=== PATIENT | female | born 1975 | race Caucasian/White ===

== ENCOUNTER 2020-04-17 15:59 | Outpatient (REF) | payer OTHER, SELFPAY | END 2020-04-17 16:00 | disposition home or self-care (01) | LOC: HO.LAB 15:59 | PROVIDERS: PCP Internal Medicine; Visit Provider Internal Medicine | DX: Z20.828 Contact with and (suspected) exposure to other viral communicable diseases (principal) | CPT/HCPCS: C9803; U0003 ==

== ENCOUNTER 2024-12-26 02:45 | Emergency (ER) | payer OTHER, SELFPAY ==
--- NOTE | 2024-12-26 | ECG_ITS ---
Test Reason : ABDOMINAL PAIN Blood Pressure : */* mmHG Vent. Rate : 60 BPM Atrial Rate : 60 BPM P-R Int : 122 ms QRS Dur : 76 ms QT Int : 408 ms P-R-T Axes : 49 50 54 degrees QTcB Int : 408 ms Normal sinus rhythm Normal ECG No previous ECGs available Referred By: Generic ED Physician Electronically Signed By: THAO RICHARDSON
--- NOTE | ~2024-12-26 | CT_ITS ---
EXAMINATION: CT ABDOMEN PELVIS WITH IV CONTRAST HISTORY: LUQ pain COMPARISON: There are no prior studies for available comparison. TECHNIQUE: CT scan of the abdomen and pelvis was performed following administration of 85 mL Omnipaque 350 using standard departmental protocol. Coronal and sagittal reformatted images were generated and reviewed. Oral contrast material was not administered at the request of the referring physician. This CT exam was performed with one or more of the following dose reduction techniques: automated exposure control, adjustment of the mA and/or kV according to patient size, use of iterative reconstruction technique. DLP: 604 mGy-cm FINDINGS: LOWER CHEST: The visualized lung bases are clear. There is no pleural effusion. CARDIOVASCULATURE: The heart is normal in size. There is no pericardial effusion. LIVER: The liver is normal in size and contour. No liver mass is identified. The hepatic and portal veins are patent. GALLBLADDER / BILE DUCTS: The gallbladder is unremarkable. There is no intra or extrahepatic biliary ductal dilatation. SPLEEN: The spleen is normal in size. No focal splenic lesion is identified. PANCREAS: The pancreas is unremarkable in appearance. ADRENAL GLANDS: Within normal limits. KIDNEYS/RETROPERITONEUM: There is a punctate nonobstructing calculus in an interpolar calyx of the left kidney. There is no hydronephrosis. No renal masses are identified. LYMPH NODES: No abdominal or pelvic lymphadenopathy. VASCULATURE: The abdominal aorta is normal in caliber. MESENTERY/PERITONEUM: No free fluid. No masses. There is no free intraperitoneal gas. STOMACH: The stomach is collapsed, limiting evaluation. SMALL BOWEL: The small bowel is normal in caliber. COLON: The colon is unremarkable. APPENDIX: Normal. URINARY BLADDER/PELVIC ORGANS: The urinary bladder is unremarkable. The uterus and ovaries are unremarkable. BONES / SOFT TISSUES: No suspicious bony or soft tissue abnormalities. CT/CT abdomen pelvis w IV con IMPRESSION: Punctate nonobstructing left renal calculus. Otherwise unremarkable contrast-enhanced CT of the abdomen and pelvis. Electronically signed by: Sharan Zaldivar MD 12/26/2024 09:42 AM EDT
[2024-12-26 02:49] VITALS: BP 127/74; PULSE 63; RESP 18; TEMP 37.2; O2SAT 99; BMI 27.7
--- OUTSIDE RECORDS SUMMARY | 2024-12-26 03:08 | XMS_ITS | Clinical Summary ---
Author Organization [facility] Address [address] [place] [address] Care Team Providers Care Web Content Executive Name Role Phone Adelia Martel MD Primary Care Provider [phone] Allergies No known active allergies Medications Medication Sig Dispensed Refills Start Date End Date Status ferrous sulfate 325 (65 FE) MG tablet Take 1 tablet (325 mg total) by mouth 2 (two) times a day. 0 Active albuterol 108 (90 Base) MCG/ACT inhaler Inhale 2 puffs into the lungs as needed for wheezing. 0 Active Active Problems Problem Noted Date Diagnosed Date BOBBY (iron deficiency anemia) 08/16/2022 Family History Medical History Relation Name Comments Skin cancer Maternal Grandmother Brain cancer Mother Anemia Neg Hx Relation Name Status Comments Father Maternal Grandmother Mother GB Social History Tobacco Use Types Packs/Day Years Used Date Smoking Tobacco: Never Smokeless Tobacco: Never Tobacco Cessation:Counseling Given: Not Answered Alcohol Use Standard Drinks/Week Comments Yes 0 (1 standard drink = 0.6 oz pur e alcohol) Socially Sex and Gender Information Value Date Recorded Sex Assigned at Female 08/25/2022 10:58 AM EDT Gender Identity Female 09/07/2022 2:44 PM EDT Sexual Orientation Straight 09/07/2022 2: 44 PM EDT Job Start Date Occupation Industry Not on file Not on file Not on file Last Filed Vital Signs Vital Sign Reading Time Taken Comments Blood Pressure 126/76 11/21/2023 9:44 AM EDT Pulse 65 11/21/2023 9:44 AM EDT Temperature 36.5 C (97.7 F) 11/21/2023 9:44 AM EDT Respiratory Rate 18 08/31/2022 1:00 PM EDT Oxygen Saturation 100% 11/21/2023 9:44 AM EDT Inhaled Oxygen Concentration - - Weight 64 kg (141 lb) 11/21/2023 9:44 AM EDT Height 160 cm (5' 3 ) 11/21/2023 9:44 AM EDT Body Mass Index 24.98 11/21/2023 9:44 AM EDT Plan of Treatment Health Maintenance Due Date Last Done Comments Hepatitis B Vaccines (1 of 3 - 3-dose series) 1977 Hepatitis C Screening 1977 COVID-19 Vaccine (#1) 03/11/1978 Depression Screening 1989 BMI Counseling 09/09/1995 Preventative Health Evaluation 09/09/1995 Cervical Cancer Screening (Pap Smear) 1998 DTap / Tdap / Td (2 - Td or Tdap) 07/03/2019 07/02/2009 Colon Cancer Screening (Colonoscopy) 2022 Influenza Vaccine (#1) 2024 3, 04/05/2022, 02/18/2021, Additional history exists Pneumococcal Vaccine Aged Out No long er eligible based on patient's age to complete this topic RSV Ped < 20 months Aged Out No longe r eligible based on patient's age to complete this topic Insurance Payer Benefit Plan / Group Subscriber ID Effective Dates Phone Address [facility] [id number] 2022-[address]art[address] [facility] [address] [place] [address] O Care Teams Web Content Executive Relationship Specialty Start Date End Date Adelia Martel MD PCP - General Internal Medicine 07/20/22
--- OUTSIDE RECORDS SUMMARY | 2024-12-26 03:09 | XMS_ITS | Clinical Summary ---
Author Organization [facility] Address [address] [place] [address] Phone Care Team Providers Care Manager Mechanical Name Role Phone Adelia Martel MD Primary Care Provider [phone] Allergies No known active allergies Medications albuterol HFA (PROAIR HFA ; PROVENTIL HFA ; VENTOLIN HFA) 90 mcg/actuation inhaler Inhale 2 puffs by mouth 1 (one) time each day if needed for wheezing. Active ferrous sulfate 325 mg (65 mg elemental iron) tablet Take 1 tablet (325 mg total) by mouth 2 (two) times a day. Active Active Problems Problem Noted Date Diagnosed Date Iron deficiency anemia 03/23/2005 Encounters Date Type Department Care Team Description 12/05/2024 10:00 AM EDT Consult Orthopedic Surgery - [place] [address] [facility] [address] [place] [id number] Yayo Steiner, DPM Hammer toe of left foot (Primary Dx); Plantar wart of left foot; Acquired hammer toe of right foot; Corns and callosities 11/20/2024 9:15 AM EDT Office Visit [facility] Hematology Oncology [address] [place] [address] Benita Valencia PA Leukopenia, unspecified type (Primary Dx); Iron deficiency anemia due to chronic blood loss; Menorrhagia with regular cycle; Palpitations; Positive ABRIL (antinuclear antibody) from Last 3 Months Surgical History Surgery Date Site/Laterality Comments OTHER SURGICAL HISTORY PROCEDURE:TONSILLECTOMY AND ADENOIDECTOMY OTHER SURGICAL HISTORY PROCEDURE:tonsilectomy;COMMENT:As a child Medical History Medical History Date Comments Asthma DX:Asthma Anemia DX:Anemia Obesity DX:Obesity Papanicolaou smear of cervix with positive high risk human papilloma virus (HPV) test DX:Papanico laou smear of cervix with positive high risk human papilloma virus (HPV) test Peripheral edema DX:Peripheral e yehuda Depression DX:Depression Family History Medical History Relation Name Comments Skin cancer Maternal Grandmother Brain cancer Mother Anemia Neg Hx Relation Name Status Comments Father Maternal Grandmother Mother GB Social History Tobacco Use Types Packs/Day Years Used Date Smoking Tobacco: Never Smokeless Tobacco: Never Tobacco Cessation:Counseling Given: Not Answered Alcohol Use Standard Drinks/Week Comments Yes 0 (1 standard drink = 0.6 oz pur e alcohol) Housing Instability Answer Date Recorde d Are you worried that in the next 2 months you may not have stable housing? No 08/28/2024 Food Access & Nutrition Answer Date Rec orded Do you have access to a vari ety of food including fruits and vegetables? Yes 08/28/2024 Access to Healthcare Answer Date Record ed Within the last 3 months, ho w many times did you visit the emergency department for your medical care? 0 08/28/2024 Health Literacy Answer Date Recorded How often do you need to hav e someone help you when you read instructions, pamphlets, or other written material from your doctor or pharmacy? Never 08/28/2024 Caregiver: How often do you need to have someone help you when you read instructions, pamphlets, or other written material from your doctor or pharmacy? Not on file 08/28/2024 Financial Risk Answer Date Recorded How hard is it for you to pa y for the very basics like food, housing, medical care, and air conditioning / heating? Not very hard 08/28/2024 Transportation Answer Date Recorded Has the lack of transportati on kept you from meetings, work, or from getting things needed for daily living? No Has the lack of transportati on kept you from medical appointments or from getting medications? No 08/28/2024 Social Isolation Answer Date Recorded How often do you feel lonely or isolated from ose around you? Never 08/28/2024 Food Risk Answer Date Recorded Within the past 12 months we worried whether our food would run out before we got money to buy more. Never true 08/28/2024 Within the past 12 months th e food we bought just didn't last and we didn't have money to get more. Never true 08/28/2024 Dependent Care Answer Date Recorded Do you need help finding or paying for care for your loved ones. For example, salesperson children's shoes or elderly care for an older adult? No 08/28/2024 Education Answer Date Recorded Do you think completing more education or training, like finishing a GED, going to college, or learning a trade, would be helpful for you? N/A 08/28/2024 Employment and Income Answer Date Recor ded During the last four weeks, have you been actively looking for work? No 08/28/2024 Living Situation Answer Date Recorded What is your living situation? 0 08/28/2024 Comments Unknown Sex and Gender Information Value Date Recorded Sex Assigned at Not on file Legal Sex Female 10:31 AM EST Gender Identity Not on file Sexual Orientation Not on file Obstetrics History Para Term AB IAB SAB Ectopic Multiple Livin g Live Births 2 2 2 2 Date Outcome GA Total Labor Labor/2nd/3rd Weight Sex Type Anes PTL Shasha A1 A5 Name Clin Term Term Last Filed Vital Signs Vital Sign Reading Time Taken Comments Blood Pressure 126/73 11/20/2024 9:06 AM EDT Pulse 74 11/20/2024 9:06 AM EDT Temperature 36.8 C (98.2 F) 11/20/2024 9:06 AM EDT Respiratory Rate 14 09/04/2024 3:32 PM EDT Oxygen Saturation 100% 11/20/2024 9:06 AM EDT Inhaled Oxygen Concentration - - Weight 71.2 kg (157 lb) 11/20/2024 9:06 AM EDT Height 160 cm (5' 3 ) 09/04/2024 3:32 PM EDT Body Mass Index 27.81 09/04/2024 3:32 PM EDT Plan of Treatment Upcoming Encounters Date Type Department Care Team (Late st Contact Info) Description 11/21/2025 8:30 AM EDT Office Visit [facility] Hematology Oncology [address] [place] [id number] Benita Valencia PA [address] [place] [address] Health Maintenance Due Date Last Done Comments Hepatitis B Vaccines (1 of 3 - 19+ 3-dose series) 1996 Pneumococcal Vaccine: Pediatrics (0 to 5 Years) and At-Risk Patients (6 to 49 Years) (1 of 2 - PCV) 1996 Cholesterol Screening (Lipid Panel) 04/05/2022 Colorectal Cancer Screening: Colonoscopy 04/05/2022 COVID-19 Vaccine ( season) 2024 02/17/2023, 05/17/2021, 11/12/2020, Additional history exists Cervical Cancer Screening: Pap Smear 07/06/2024 07/07/2023, 08/17/2022, 01/25/2018 Influenza Vaccine (#1) 2024 , 04/05/2022, 02/18/2021, Additional history exists Social Influencers of Health Screening 08/28/2025 08/28/2024 Breast Cancer Screening 05/11/2026 05/11/19, 05/03/2023, 11/16/2022, Additional history exists DTaP,Tdap,and Td Vaccines (4 - Td or Tdap) 06/28/2032 06/28/2022, 07/02/2009, 05/15/2002 Depression Screening Completed 08/28/2024 HIV Screening Completed 11/20/2024 Hepatitis C Screening Completed 11/20/2024 HIB Vaccines Aged Out No longer eligi ble based on patient's age to complete this topic HPV Vaccines Aged Out No longer eligi ble based on patient's age to complete this topic Hepatitis A Vaccines Aged Out No long er eligible based on patient's age to complete this topic IPV Vaccines Aged Out No longer eligi ble based on patient's age to complete this topic MMR Vaccines Aged Out No longer eligi ble based on patient's age to complete this topic Meningococcal ACWY Vaccine Aged Out N o longer eligible based on patient's age to complete this topic Meningococcal B Vaccine Aged Out No l onger eligible based on patient's age to complete this topic RSV Immunization Patients Under 20 months Aged Out No longer eligible based on patient's age to complete this topic Varicella Vaccines Aged Out No longer eligible based on patient's age to complete this topic Procedures Procedure Name Priority Date/Time Associated Diagnosis Comments EXTRACTABLE NUCLEAR ANTIBODIES PROFILE Routine 11/23/2024 8:23 AM EDT Leucopenia ANTI-DNA ANTIBODY, DOUBLE-STRANDED Routine 11/23/2024 8:23 AM EDT Leukopenia, unspecified type Positive ABRIL (antinuclear antibody) CBC WITH AUTO DIFFERENTIAL Routine 11/20/2024 9:42 AM EDT Iron deficiency anemia secondary to blood loss (chronic) VITAMIN B12 AND FOLATE Routine 9:42 AM EDT Leukopenia, unspecified type THYROID STIMULATING HORMONE WITH REFLEX TO FREE T4 AND FREE T3 Routine 11/20/2024 9:42 AM EDT Palpitations RHEUMATOID FACTOR Routine 11/20/2024 9:4 2 AM EDT Leukopenia, unspecified type RETICULOCYTE COUNT Routine 11/20/2024 9: 42 AM EDT Leukopenia, unspecified type Iron deficiency anemia due to chronic blood loss LACTATE DEHYDROGENASE Routine 11/20/2024 9:42 AM EDT Leukopenia, unspecified type HIV 1, 2 ANTIBODY, P24 ANTIGEN WITH REFLEX TO DIFFERENTIATION Routine 11/20/2024 9:42 AM EDT Leukopenia, unspecified type HEPATITIS PANEL, ACUTE WITH REFLEX TO CONFIRMATION Routine 11/20/2024 9:42 AM EDT Leukopenia, unspecified type ABRIL IFA WITH TITER AND PATTERN Routine 11/20/2024 9:42 AM EDT Leukopenia, unspecified type FERRITIN Routine 11/20/2024 9:42 AM EDT Iron deficiency anemia secondary to blood loss (chronic) IRON AND TIBC Routine 11/20/2024 9:42 AM EDT Iron deficiency anemia secondary to blood loss (chronic) CBC AND DIFFERENTIAL Routine 11/20/2024 9:42 AM EDT Iron deficiency anemia secondary to blood loss (chronic) ..MISCELLANEOUS REFERENCE LAB TEST 11/20/2024 CBC WITH AUTO DIFFERENTIAL Routine 11/16/2024 8:32 AM EDT Iron deficiency anemia secondary to blood loss (chronic) FERRITIN Routine 11/16/2024 8:32 AM EDT Iron deficiency anemia secondary to blood loss (chronic) IRON AND TIBC Routine 11/16/2024 8:32 AM EDT Iron deficiency anemia secondary to blood loss (chronic) CBC AND DIFFERENTIAL Routine 11/16/2024 8:32 AM EDT Iron deficiency anemia secondary to blood loss (chronic) MG MAMMO DIGITAL SCREENING W ABHISHEK BILAT Routine 05/11/2024 7:45 AM EST Encounter for screening mammogram for breast cancer PAP SMEAR Routine 07/07/2023 from Last 3 Months or Most Recently Relevant to Health Maintenance Results * Extractable Nuclear Antibodies Profile (11/23/2024 8:23 AM EDT) SM Ab Negative Negative LAB CHEMISTRY METHOD 11/25/2024 10:17 AM EDT [facility] SM Antibody Quant 4 <20 units LAB CHEMISTRY METHOD 11/25/2024 10:17 AM EDT [facility] AIR TUCKER Ab Negative Negative LAB CHEMISTRY METHOD 11/25/2024 10:17 AM EDT [facility] AIR TUCKER Antibody Quant 3 <20 units LAB CHEMISTRY METHOD 11/25/2024 10:17 AM EDT [facility] Blood Venous blood specimen / Unknown Venipuncture / Unknown 11/23/2024 8:23 AM EDT 11/23/2024 12:04 PM EDT Benita CASTRO LAB BLOOD ORDERABLES Final Re sult Performing Organization Address [facility]/ZIP Co de Phone Number [facility] [address] [place] [address], [place] [phone] * DNA antibody, double-stranded (11/23/2024 8:23 AM EDT) Anti-DNA Double Stranded Antibody Negative Negative LAB CHEMISTRY METHOD 11/25/2024 10:17 AM EDT [facility] ds DNA Ab 43 <=200 I Unit/mL LAB CHEMISTRY METHOD 11/25/2024 10:17 AM EDT [facility] Blood Venous blood specimen / Unknown Venipuncture / Unknown 11/23/2024 8:23 AM EDT 11/23/2024 12:04 PM EDT Benita CASTRO LAB BLOOD ORDERABLES Final Re sult Performing Organization Address City/[facility]/ZIP Co de Phone Number [facility] [address] [place] [address], [place] [phone] * HIV 1,2 antibody, p24 antigen with reflex to differentiation (11/20/2024 9:42 AM EDT) HIV Combo AB/AG Negative Negative LAB CHEMISTRY METHOD 11/20/2024 3:55 PM EDT [facility] Blood Venous blood specimen / Unknown Venipuncture / Unknown 11/20/2024 9:42 AM EDT 11/20/2024 12:15 PM EDT Narrative [facility] - 11/20/2024 3:55 PM EDT This assay is a 4th generation assay allowing for earlier detection of HIV infection by detecting the presence of the HIV-1 p24 antigen as well as the traditional antibodies to HIV type 1 (including group O) and type 2. Use of a 4th generation assay is the current CDC recommendation for HIV screening. Benita CASTRO LAB BLOOD ORDERABLES Final Re sult Performing Organization Address [facility]/ZIP Co de Phone Number [facility] [address] [place] [address], [place] [phone] * Thyroid stimulating hormone with reflex to free t4 and free t3 (11/20/2024 9:42 AM EDT) TSH 1.41 0.40 - 4.00 mcIU/mL LAB CHEMISTRY METHOD 11/20/2024 3:16 PM EDT [facility] Blood Venous blood specimen / Unknown Venipuncture / Unknown 11/20/2024 9:42 AM EDT 11/20/2024 12:15 PM EDT Benita CASTRO LAB BLOOD ORDERABLES Final Re sult Performing Organization Address [facility] Co de Phone Number [facility] [address] [place] [address], [place] [phone] * (ABNORMAL) Vitamin B12 and folate (11/20/2024 9:42 AM EDT) Vitamin B-12 1,696(H) 250 - 900 pcg/mL LAB CHEMISTRY METHOD 11/20/2024 1:21 PM EDT [facility] Folate >20.0(H) 2.8 - 17.0 ng/ml LAB CHEMISTRY METHOD 11/20/2024 1:21 PM EDT [facility] Blood Venous blood specimen / Unknown Venipuncture / Unknown 11/20/2024 9:42 AM EDT 11/20/2024 12:15 PM EDT Benita CASTRO LAB BLOOD ORDERABLES Final Re sult Performing Organization Address [facility]/ZIP Co de Phone Number [facility] [address] [place] [address], [place] [phone] * Hepatitis panel, acute with reflex to confirmation (11/20/2024 9:42 AM EDT) Hepatitis B Surface Ag Negative Negative LAB CHEMISTRY METHOD 11/20/2024 5:24 PM EDT [facility] Hepatitis A Antibody IgM Negative Negative LAB CHEMISTRY METHOD 11/20/2024 5:24 PM EDT [facility] Hep B Core IgM Negative Negative LAB CHEMISTRY METHOD 11/20/2024 5:24 PM EDT [facility] Hepatitis C Antibody Negative Negative LAB CHEMISTRY METHOD 11/20/2024 5:24 PM EDT [facility] Blood Venous blood specimen / Unknown Venipuncture / Unknown 11/20/2024 9:42 AM EDT 11/20/2024 12:15 PM EDT Benita CASTRO LAB BLOOD ORDERABLES Final Re sult Performing Organization Address City/[facility]/ZIP Co de Phone Number [facility] [address] [place] [address], [place] [phone] * (ABNORMAL) ABRIL IFA with titer and pattern (11/20/2024 9:42 AM EDT) Pathologist [facility] ABRIL Positive( A) Negative 11/22/2024 1:12 PM EDT [facility] ABRIL Pattern Homogeneo us(A) (none) 11/22/2024 1:12 PM EDT [facility] Comment: May be Associated with SLE and drug-induced SLE. If clinical suspicion of SLE consider testing for anti-dsDNA and anti-Sm. If established SLE to assess disease activity and/or prognosis, consider testing for anti-dsDNA. If clinical suspicion of drug induced LE no further testing is indicated. Titer 1:640(A) <1:160 11/22/2024 1:12 PM EDT [facility] Blood Venous blood specimen / Unknown Venipuncture / Unknown 11/20/2024 9:42 AM EDT 11/20/2024 12:15 PM EDT us Benita CASTRO LAB BLOOD ORDERABLES Final Re sult [facility] [address] [place] [address], * (ABNORMAL) CBC auto differential (11/20/2024 9:42 AM EDT) Only the most recent of2 resultswithin the time period is included. WBC 4.6(L) 4.8 - 10.8 K/mcL LAB HEMETOLOGY METHOD 11/20/2024 12:31 PM EDT [facility] RBC 4.60 3.80 - 4.80 M/mcL LAB HEMETOLOGY METHOD 11/20/2024 12:31 PM EDT [facility] Hemoglobin 12.7 11.5 - 16.0 g/dL LAB HEMETOLOGY METHOD 11/20/2024 12:31 PM EDT [facility] Hematocrit 39.4 35.0 - 47.0 % LAB HEMETOLOGY METHOD 11/20/2024 12:31 PM EDT [facility] MCV 86.4 79.0 - 98.0 FL LAB HEMETOLOGY METHOD 11/20/2024 12:31 PM EDT [facility] MCH 27.9 27.0 - 32.0 pcg LAB HEMETOLOGY METHOD 11/20/2024 12:31 PM EDT [facility] MCHC 32.2 32.0 - 37.0 g/dL LAB HEMETOLOGY METHOD 11/20/2024 12:31 PM EDT [facility] RDW 12.7 11.0 - 15.0 % LAB HEMETOLOGY METHOD 11/20/2024 12:31 PM EDT [facility] Platelets 224 130 - 400 K/mcL LAB HEMETOLOGY METHOD 11/20/2024 12:31 PM [facility] MPV 9.9 7.0 - 11.0 FL LAB HEMETOLOGY METHOD 11/20/2024 12:31 PM [facility] NRBC 0.0 <1.0 % LAB HEMETOLOGY METHOD 11/20/2024 12:31 PM [facility] NRBC Absolute 0.00 <0.10 K/mcL LAB HEMETOLOGY METHOD 11/20/2024 12:31 PM [facility] Neutrophils Relative 59.7 % LAB HEMETOLOGY METHOD 11/20/2024 12:31 PM [facility] Lymphocytes Relative 30.9 % LAB HEMETOLOGY METHOD 11/20/2024 12:31 PM [facility] Monocytes Relative 7.6 % LAB HEMETOLOGY METHOD 11/20/2024 12:31 PM [facility] Eosinophils Relative 0.9 % LAB HEMETOLOGY METHOD 11/20/2024 12:31 PM [facility] Basophils Relative 0.7 % LAB HEMETOLOGY METHOD 11/20/2024 12:31 PM [facility] Immature Granulocytes Relative 0.2 % LAB HEMETOLOGY METHOD 11/20/2024 12:31 PM [facility] Neutrophils Absolute 2.74 1.50 - 7.00 K/mcL LAB HEMETOLOGY METHOD 11/20/2024 12:31 PM [facility] Lymphocytes Absolute 1.42 1.00 - 5.00 K/mcL LAB HEMETOLOGY METHOD 11/20/2024 12:31 PM [facility] Monocytes Absolute 0.35 0.20 - 1.00 K/mcL LAB HEMETOLOGY METHOD 11/20/2024 12:31 PM EDT [facility] Eosinophils Absolute 0.04 0.00 - 0.50 K/[facility] LAB HEMETOLOGY METHOD 11/20/2024 12:31 PM EDT [facility] Basophils Absolute 0.03 0.00 - 0.20 K/[facility] LAB HEMETOLOGY METHOD 11/20/2024 12:31 PM EDT [facility] Immature Granulocytes Absolute 0.01 0.00 - 0.03 /[facility] LAB HEMETOLOGY METHOD 11/20/2024 12:31 PM EDT [facility] Blood Venous blood specimen / Unknown Venipuncture / Unknown 11/20/2024 9:42 AM EDT 11/20/2024 12:14 PM EDT us Beinta CASTRO LAB BLOOD ORDERABLES Final Re sult [facility] [address] [place] [address], [place] [phone] * Iron and TIBC (11/20/2024 9:42 AM EDT) Only the most recent of2 resultswithin the time period is included. Iron 139 40 - 150 mcg/dL LAB CHEMISTRY METHOD 11/20/2024 2:51 PM EDT [facility] Comment:Results verified by repeat testing TIBC 351 250 - 450 mcg/dL LAB CHEMISTRY METHOD 11/20/2024 2:51 PM EDT [facility] Iron Saturation 40 15 - 50 % LAB CHEMISTRY METHOD 11/20/2024 2:51 PM EDT [facility] Blood Venous blood specimen / Unknown Venipuncture / Unknown 11/20/2024 9:42 AM EDT 11/20/2024 12:15 PM EDT Benita CASTRO LAB BLOOD ORDERABLES Final Re sult Performing Organization Address [facility]/ZIP Co de Phone Number [facility] [address] [place] [address], [place] [phone] * Reticulocyte count (11/20/2024 9:42 AM EDT) Retic Ct Abs 0.040 0.030 - 0.090 M/mcL LAB HEMETOLOGY METHOD 11/20/2024 12:31 PM EDT [facility] Retic Ct Pct 0.9 0.7 - 1.7 % LAB HEMETOLOGY METHOD 11/20/2024 12:31 PM EDT [facility] Immature Retic Fract 4.7 2.3 - 15.9 % LAB HEMETOLOGY METHOD 11/20/2024 12:31 PM EDT [facility] Reticulocyte Hemoglobin 32.0 >29.0 pcg LAB HEMETOLOGY METHOD 11/20/2024 12:31 PM EDT [facility] Blood Venous blood specimen / Unknown Venipuncture / Unknown 11/20/2024 9:42 AM EDT 11/20/2024 12:14 PM EDT Benita CASTRO LAB BLOOD ORDERABLES Final Re sult Performing Organization Address [facility]/ZIP Co de Phone Number [facility] [address] [place] [address], [place] [phone] * Rheumatoid factor (11/20/2024 9:42 AM EDT) Rheumatoid Factor <10.0 <15.0 I Unit/mL LAB CHEMISTRY METHOD 11/20/2024 1:21 PM EDT [facility] Blood Venous blood specimen / Unknown Venipuncture / Unknown 11/20/2024 9:42 AM EDT 11/20/2024 12:15 PM EDT Benita CASTRO LAB BLOOD ORDERABLES Final Re sult Performing Organization Address [facility]/ZIP Co de Phone Number [facility] [address] [place] [address], [place] [phone] * Lactate dehydrogenase (11/20/2024 9:42 AM EDT) LDH 157 120 - 246 unit/L LAB CHEMISTRY METHOD 11/20/2024 1:21 PM EDT [facility] Blood Venous blood specimen / Unknown Venipuncture / Unknown 11/20/2024 9:42 AM EDT 11/20/2024 12:15 PM EDT Benita CASTRO LAB BLOOD ORDERABLES Final Re sult Performing Organization Address [facility] Co de Phone Number [facility] [address] [place] [address], [place] [phone] * Ferritin (11/20/2024 9:42 AM EDT) Only the most recent of2 resultswithin the time period is included. Ferritin 12 8 - 252 ng/mL LAB CHEMISTRY METHOD 11/20/2024 1:21 PM EDT [facility] Blood Venous blood specimen / Unknown Venipuncture / Unknown 11/20/2024 9:42 AM EDT 11/20/2024 12:15 PM EDT Benita CASTRO LAB BLOOD ORDERABLES Final Re sult Performing Organization Address City/[facility]/ZIP Co de Phone Number [facility] [address] [place] [address], [place] [phone] * Miscellaneous reference lab test (11/20/2024) us Provider Onbase MD LAB BLOOD ORDERABLES Final Re sult * MG Mammo Digital Screening w Abhishek bilat (05/11/2024 7:45 AM EST) Anatomical Region Laterality Modality Breast Bilateral Mammography 05/11/2024 3:37 PM EST Impressions 05/11/2024 3:37 PM EST No mammographic evidence of malignancy. BREAST DENSITY: B - There are scattered areas of fibroglandular density. BI-RADS CATEGORY: 1 - NEGATIVE RECOMMENDATION: Screening bilateral mammogram is recommended in 1 year. MAMMO LOCATION: [facility], [address] [place] [address], [id number], . -------- FINAL REPORT -------- Dictated By: Carmenza Stephens Dictated Date: 05/11/2024 15:37 ET Assigned Physician: Carmenza Stephens Reviewed and Electronically Signed By: Carmenza Stephens Signed Date: 05/11/2024 15:37 ET Workstation ID: [id number] Transcribed By: Self Edit Transcribed Date: 05/11/2024 15:37 ET Narrative 05/11/2024 3:37 PM EST EXAM: Screening Mammogram CLINICAL: 48 years old, Female, routine annual exam. COMPARISON: 05/03/2023 and as far back as 02/27/2020 TECHNIQUE: Bilateral MLO and CC views were obtained digitally with 3-D mammogram (digital breast tomosynthesis). Computer-aided detection was utilized in evaluation of this exam (CAD). FINDINGS: No new suspicious mass, architectural distortion, or suspicious calcifications. Procedure Note Carmenza Stephens MD - 05/11/2024 EXAM: Screening Mammogram CLINICAL: 48 years old, Female, routine annual exam. COMPARISON: 05/03/2023 and as far back as 02/27/2020 TECHNIQUE: Bilateral MLO and CC views were obtained digitally with 3-Dmammogram (digital breast tomosynthesis). Computer-aided detection wasutilized in evaluation of this exam (CAD). FINDINGS: No new suspicious mass, architectural distortion, or suspiciouscalcifications. IMPRESSION: No mammographic evidence of malignancy. BREAST DENSITY: B - There are scattered areas of fibroglandular density. BI-RADS CATEGORY: 1 - NEGATIVE RECOMMENDATION: Screening bilateral mammogram is recommended in 1 year. MAMMO LOCATION: [facility], [address] [place] [address], [id number], . -------- FINAL REPORT -------- Dictated By: Carmenza Stephens Dictated Date: 05/11/2024 15:37 ET Assigned Physician: Carmenza Stephens Reviewed and Electronically Signed By: Carmenza Stephens Signed Date: 05/11/2024 15:37 ET Workstation ID: [id number] Transcribed By: Self Edit Transcribed Date: 05/11/2024 15:37 ET us Adelia Martel MD IMG BI PROCEDURES Final Result * Pap smear (07/07/2023) 07/07/2023 Narrative HISTORICAL TESTING LAB RESULTING AGENCY - 07/20/2023 7:05 AM EDT [id number] THINPREP PAP, IMAGED: NEGATIVE FOR SQUAMOUS INTRAEPITHELIAL LESION AND MALIGNANCY . THANIA ABEBE , FABIAN(ASCP) (CASE ELECTRONICALLY SIGNED 07 19 2023) RESULT OF APTIMA HIGH RISK HPV ASSAY: HIGH RISK HPV: NEGATIVE (SEROTYPES 16,18,31,33,35,39,45,51,52,56,58,59,66,68) COMPLETED ON 2023-07-12 ADEQUACY: SATISFACTORY ENDOCERVICAL/TRANSFORMATION ZONE COMPONENT PRESENT. SOURCE: THINPREP PAP HPV ANY DX: REFLEX 16 AND 18, CERVICAL, IMAGED CLINICAL INFORMATION: HPV ANY DIAGNOSIS. HORMONES, PAP HX NEGATIVE LSIL, HPV +, [Z01.419] us Bruno Caban CNM LAB CYTOLOGY ORDERABLES Final Result HISTORICAL TESTING LAB RESULTING AGENCY from Last 3 Months or Most Recently Relevant to Health Maintenance Insurance [facility] Care Teams Manager Mechanical Relationship Specialty Start Date End Date Adelia Martel MD [address] [place] [address] PCP - General 02/19/00
[2024-12-26 03:21] LABS: MANUAL DIFF FLAG NO
[2024-12-26 03:22] LABS: Hematocrit 34.4 % (37.0-47.0); Hemoglobin 11.9 g/dl (12.0-16.0); Imm Gran Abs Auto 0.02 X10*3/uL (0.00-0.03); Imm Gran Pct Auto 0.3 % (0.0-0.4); Lymphocytes Absolute Auto 1.6 X10*3/uL (1.2-4.9); Mean Corpuscular HGB Conc 34.6 g/dl (31.0-35.0); Mean Corpuscular Hemoglobin 28.7 pg (27.0-33.0); Mean Corpuscular Volume 83.1 fL (80.0-98.0); NRBC Abs Auto 0.000 X10*3/uL (0.0-0.012); NRBC Pct Auto 0.0 /100WBC (0.0-0.2); Platelet Count 204 X10*3/uL (160-400); Red Blood Count 4.14 X10*6/uL (4.20-5.50); White Blood Count 6.2 X10*3/uL (4.8-10.8)
--- NOTE | 2024-12-26 03:23 | MHC.EDTECH ---
@[id number] Patient stated unable to urinate at this time, Urine cup was provided to the patient, informed her when she can go to inform the commercial front load driver and this tech will be out to collect it.
[2024-12-26 03:42] LABS: Alanine Aminotransferase 16 U/L (0-31); Albumin Level 4.4 g/dL (3.5-5.0); Alkaline Phosphatase 53 U/L (39-117); Anion Gap 12 (12-20); Aspartate Amino Transferase 21 U/L (5-31); Blood Urea Nitrogen 27 mg/dL (9-16); Calcium 9.0 mg/dL (8.4-10.2); Carbon Dioxide 26 mmol/L (22-29); Chloride 105 mmol/L (96-108); Creatinine Clr Calc Pharmacy 71.4; Estimated Glomerular Filt Rate > 60; Lipase 26 U/L (8-78); Potassium 3.7 mmol/L (3.3-5.1); Sodium 139 mmol/L (135-145); Total Protein 6.9 g/dL (6.5-8.0)
[2024-12-26 04:08] LABS: Troponin-I High Sensitivity < 2.7 ng/L (<3.5-17.0)
[2024-12-26 04:26] VITALS: BP 114/55; PULSE 62; RESP 17; TEMP 36.6; O2SAT 100
[2024-12-26 04:32] LABS: Appearance Urine Clear; Glucose Urine UA Negative (Negative); PH 5.0 (5.0-9.0); Specific Gravity - Urine 1.025 (1.005-1.025); UMIC TRIGGER UACC YES
[2024-12-26 05:41] VITALS: BP 110/65; PULSE 63; RESP 16; O2SAT 99
[2024-12-26 07:53] VITALS: BP 117/71; PULSE 70; RESP 13; TEMP 36.7; O2SAT 99
--- NOTE | 2024-12-26 08:10 | ED_ITS ---
HPI - General Adult General Chief complaint: Abdominal Pain Stated complaint: abd pain + back pain Time Seen by Provider: 12/26/24 08:10 Source: patient Mode of arrival: ambulatory Limitations: no limitations History of Present Illness ED Provider: Jolynn Gonzalez PA-C HPI narrative: Patient is a 49 year old assigned female at with no reported medical history presenting to the emergency department today with left upper quadrant abdominal pain that radiates into the flank. Patient states that she woke up suddenly with left upper quadrant belly pain that radiates to the flank. Patient denies any history of kidney stones. Patient states that the pain made her immediately lightheaded and nauseous but she did not vomit and both symptoms resolved when the pain lessened. Patient denies any dizziness, vomiting, fever, chills, blurry vision, double vision, loss of vision, chest pain, difficulty breathing, shortness of breath, back pain, night sweats, pain with urination, increased urinary frequency, increased urinary urgency, blood in her urine or stool, syncope or a near syncopal episode, recent trauma or falls, bowel incontinence, bladder incontinence, or any other complaints at this time. Patient states that she is on her menstrual cycle. Location: abdomen and left Related Data Previous Rx's ?Medication ?Instructions ?Recorded naproxen 500 mg tablet 500 mg PO BID 7 days #14 tab s 12/26/24 tamsulosin 0.4 mg capsule 0.4 mg PO DAILY #7 caps 12/01 11/23 Allergies Allergy/AdvReac Type Severity Reaction Status Date / Time No Known Allergies Allergy Verified 12/26/24 02:51 Review of Systems 2 Constitutional: Constitutional: Reports no additional constitutional complaints, Denies chills, Denies fever(s) and Denies night sweats Eyes: Eyes: Reports no additional eye complaints, Denies blurry vision, Denies change in vision, Denies diplopia, Denies eye discharge, Denies loss of vision and Denies eye pain ENT: Denies dizziness Cardiovascular: Cardiovascular: Reports no additional cardiovascular complaints, Denies chest pain, Denies lightheadedness, Denies Loss of Consciousness and Denies dyspnea Respiratory: Respiratory: Reports no additional respiratory complaints and Denies dyspnea Gastrointestinal: Gastrointestinal: Reports no additional gastrointestinal complaints, Reports abdominal pain, Denies melena, Denies hematochezia, Denies change in bowel habits, Denies change in stool character, Reports nausea and Denies vomiting Genitourinary: Genitourinary: Denies hematuria, Denies urinary frequency, Denies dysuria, Reports flank pain, Denies urinary incontinence, Denies urinary hesitancy and Denies urinary urgency Comments: vaginal bleeding secondary to menstrual cycle Musculoskeletal: Musculoskeletal: Reports no additional musculoskeletal complaints, Denies numbness and Denies tingling Neurologic: Denies dizziness, Denies loss of vision, Denies numbness and Denies tingling Psychiatric: Psychiatric: Reports no additional psychiatric complaints Endocrine: Endocrine: Reports no additional endocrine complaints Hematologic/Lymphatic: Hematologic/Lymphatic: Reports no additional hematologic/lymphatic complaints Allergic/Immunologic: Allergic/Immunologic: Reports no additional allergic/immunologic complaints PMFSH Past Medical History Attestation statement: The following information was validated with the patient. Source: old records reviewed and nursing notes reviewed Physical Exam ED Vital Signs: Vital Signs - 24 hr 12/26/24 02:49 12/26/24 04:26 12/26/24 05:41 Temperature 98.9 F 97.9 F Pulse Rate 63 62 63 Respiratory Rate 18 17 16 Blood Pressure 127/74 114/55 L 110/65 Pulse Oximetry 99 100 99 Oxygen Delivery Method Room Air Room Air Room Air 12/26/24 07:53 12/26/24 09:31 12/26/24 10:09 Temperature 98.1 F 99 F 99 F Pulse Rate 70 63 63 Respiratory Rate 13 16 16 Blood Pressure 117/71 125/66 125/66 Pulse Oximetry 99 98 98 Oxygen Delivery Method Room Air Room Air Room Air BMI result Body Mass Index 27.7 Const General: cooperative, no acute distress, alert and awake Nutritional Appearance: well nourished Orientation/consciousness: patient oriented x3 HENMT Head: Yes normal to inspection and Yes atraumatic Ears: hearing grossly normal bilaterally and external ears normal General nose exam: Normal external nose present, no nasal discharge noted and no epistaxis Face and sinus: Yes normal facial exam, No abrasion and No laceration Mouth: Normal oral and palatal mucosa present, no drooling and no muffled voice Eyes General: appearance normal, both eyes and all related structures Periorbital: periorbital findings normal Eyelids: Yes eyelids normal Conjunctivae: conjunctivae normal Pupils: Equal, round and reactive pupils present EOM: EOMs intact bilaterally Neck Neck: Yes normal visual inspection and Yes full ROM Resp Effort & Inspection: normal respiratory effort and able to speak in complete sentences Neuro General: patient oriented x3, moves all extremities and CN's II-XI intact bilaterally Cranial nerves: Yes Equal, round and reactive pupils present Cognition (Neuro): normal cognition Extrem General: Yes normal to inspection, Yes full ROM and Yes capillary refill normal Psych Appearance: grossly normal Mental Status: mental status grossly normal Affect: normal affect Attitude: cooperative Thought process: Normal thought process present Thought content: Normal thought content present Insight: Good insight present (Psych) Medications Administered Discontinued Medications Generic Name Dose Route Start Last Admin Trade Name Mansoor PRN Reason Stop Dose Admin Iohexol 100 ml 12/26/24 09:21 12/26/24 09:29 Iohexol 350 Mg/Ml 100 Ml Infus..Btl IV 12/26/24 09:22 85 ml ONCE ONE Administration Morphine Sulfate 4 mg 12/26/24 08:20 12/26/24 08:34 Morphine Sulfate 4 Mg/Ml Cartridge IVPUSH 12/26/24 08:21 4 mg ONCE ONE Administration Protocol Ondansetron HCl 4 mg 12/26/24 08:20 12/26/24 08:34 Ondansetron Hcl 4 Mg/2 Ml Vial IVPUSH 12/26/24 08:21 4 mg ONCE ONE Administration Medical Decision Making Medical Decision Making [facility] Narrative: Patient is a 49 year old assigned female at with no reported medical history presenting to the emergency department today with left upper quadrant abdominal pain that radiates into the flank. Patient's physical exam was unremarkable. Patient's blood work was unremarkable. Patient's urine showed blood which is likely secondary to her menstrual cycle. Patient's CT abd/pelvis showed multiple small left sided kidney stones. Patient's pain is likely secondary to the recent passing of a left sided kidney stone. I explained my physical exam findings as well as all test results to the patient. I answered all questions asked by the patient. Patient received IV Morphine and zofran which, upon re-evaluation, she stated it helped her symptoms significantly. I stressed the importance of the patient taking her medication as directed (either prescribed or as the over the counter packaging recommends). I stressed the importance of the patient following up with her primary care provider and a urologist. I stressed the importance of the patient returning to the emergency department immediately if her symptoms were to worsen or if she were to develop any dizziness, shortness of breath, difficulty breathing, chest pain, blurry vision, loss of vision, nausea, vomiting, abdominal pain, fever, chills, back pain, or any other complaints. Patient verbalized agreement and understanding with this treatment plan and discharge. Differential Diagnosis Differential Diagnoses: The differential diagnosis associated with the presentation includes Kidney stone Abdominal pain Gastroenteritis Admission/Observation Consideration of admission/observation: Escalation of care including admission/observation considered Patient would have been admitted to the hospital had her work up had any findings where hospital admission was appropriate and her clinical presentation warranted hospital admission. Lab Data [facility] Lab Attestation statement: I reviewed the patient's lab results. My interpretation of these results are in the [facility] Rationale portion of this note. 12/26/24 03:15 12/26/24 03:15 Labs: Lab Results 12/26/24 12/26/24 Range/Units 03:15 04:25 WBC 6.2 (4.8-10.8) X10*3/uL RBC 4.14 L (4.20-5.50) X10*6/uL Hgb 11.9 L (12.0-16.0) g/dl Hct 34.4 L (37.0-47.0) % MCV 83.1 (80.0-98.0) fL MCH 28.7 (27.0-33.0) pg MCHC 34.6 (31.0-35.0) g/dl RDW 13.3 (11.0-16.0) % Plt Count 204 (160-400) X10*3/uL MPV 9.0 L (9.4-12.3) fL Immature Gran % (Auto) 0.3 (0.0-0.4) % Neut % (Auto) 66.2 (45-73) % Lymph % (Auto) 26.3 (20-40) % [place] % (Auto) 5.2 (2-11) % Eos % (Auto) 1.5 (0-4) % Baso % (Auto) 0.5 (0-2) % Lymph # (Auto) 1.6 (1.2-4.9) X10*3/uL [place] # (Auto) 0.3 (0.1-1.2) X10*3/uL Eos # (Auto) 0.1 (0.0-0.4) X10*3/uL Baso # (Auto) 0.0 (0.0-0.2) X10*3/uL Abs Immat Gran (auto) 0.02 (0.00-0.03) X10*3/uL Absolute Neuts (auto) 4.1 (2.0-8.3) x10*3/uL Absolute Nucleated RBC 0.000 (0.0-0.012) X10*3/uL Nucleated RBC % (auto) 0.0 (0.0-0.2) /100WBC Sodium 139 (135-145) mmol/L Potassium 3.7 (3.3-5.1) mmol/L Chloride 105 (96-108) mmol/L Carbon Dioxide 26 (22-29) mmol/L Anion Gap 12 (12-20) BUN 27 H (9-16) mg/dL Creatinine 0.92 (0.5-1.4) mg/dL Estim Creat Clear Calc 71.4 Estimated GFR > 60 Random Glucose 122 H (60-115) mg/dL Calcium 9.0 (8.4-10.2) mg/dL Magnesium 1.7 (1.6-2.6) mg/dL Total Bilirubin 0.3 (0.0-1.0) mg/dL AST 21 (5-31) U/L ALT 16 (0-31) U/L Alkaline Phosphatase 53 (39-117) U/L Troponin I High Sens < 2.7 (<3.5-17.0) ng/L Total Protein 6.9 (6.5-8.0) g/dL Albumin 4.4 (3.5-5.0) g/dL Lipase 26 (8-78) U/L Beta HCG, Quant < 2 mIU/mL Urine Color Yellow Urine Appearance Clear Urine pH 5.0 (5.0-9.0) Ur Specific [place] 1.025 (1.005-1.025) Urine Protein Negative (Neg-Trace) mg/dL Urine Glucose (UA) Negative (Negative) mg/dL Urine Ketones Trace (Negative) mg/dL Urine Blood Large (3+) H (Negative) Urine Nitrite Negative (Negative) Ur Leukocyte Esterase Negative (Negative) Urine RBC >20 H (0-2) /HPF Urine WBC 0-5 (0-5) /HPF Ur Squamous Epith Cells 0-2 (0-2) /HPF Urine Bacteria None Seen (None Seen) Hyaline Casts 3-5 (0-2) /LPF Independent Interpretation I performed an independent interpretation of an: CT Scan Interpretation: My interpretation is in agreement with the radiologist's impression of this imaging study. L Report Number: [id number]: Total DLP = 604.00 mGy-cm EXAMINATION: CT ABDOMEN PELVIS WITH IV CONTRAST HISTORY: LUQ pain COMPARISON: There are no prior studies for available comparison. TECHNIQUE: CT scan of the abdomen and pelvis was performed following administration of 85 mL Omnipaque 350 using standard departmental protocol. Coronal and sagittal reformatted images were generated and reviewed. Oral contrast material was not administered at the request of the referring physician. This CT exam was performed with one or more of the following dose reduction techniques: automated exposure control, adjustment of the mA and/or kV according to patient size, use of iterative reconstruction technique. DLP: 604 mGy-cm FINDINGS: LOWER CHEST: The visualized lung bases are clear. There is no pleural effusion. CARDIOVASCULATURE: The heart is normal in size. There is no pericardial effusion. LIVER: The liver is normal in size and contour. No liver mass is identified. The hepatic and portal veins are patent. GALLBLADDER / BILE DUCTS: The gallbladder is unremarkable. There is no intra or extrahepatic biliary ductal dilatation. SPLEEN: The spleen is normal in size. No focal splenic lesion is identified. PANCREAS: The pancreas is unremarkable in appearance. ADRENAL GLANDS: Within normal limits. KIDNEYS/RETROPERITONEUM: There is a punctate nonobstructing calculus in an interpolar calyx of the left kidney. There is no hydronephrosis. No renal masses are identified. LYMPH NODES: No abdominal or pelvic lymphadenopathy. VASCULATURE: The abdominal aorta is normal in caliber. MESENTERY/PERITONEUM: No free fluid. No masses. There is no free intraperitoneal gas. STOMACH: The stomach is collapsed, limiting evaluation. SMALL BOWEL: The small bowel is normal in caliber. COLON: The colon is unremarkable. APPENDIX: Normal. URINARY BLADDER/PELVIC ORGANS: The urinary bladder is unremarkable. The uterus and ovaries are unremarkable. BONES / SOFT TISSUES: No suspicious bony or soft tissue abnormalities. CT/CT abdomen pelvis w IV con IMPRESSION: Punctate nonobstructing left renal calculus. Otherwise unremarkable contrast- enhanced CT of the abdomen and pelvis. Electronically signed by: Sharan Zaldivar MD 12/26/2024 09:42 AM EDT RP Dictated By: Sharan Zaldivar MD Signed By: Electronically signed by Sharan Zaldivar MD 12/26/24 0942 Radiology Impression Discussion of test interpretation with radiology: I have reviewed the radiologist's reading. Prescription Management I considered prescription management with: Pain Medication (patient prescribed pain medication) Critical Care Time Critical Care Time Critical Care Time: Yes Total Critical Care Time: 38 Attestation: I spent 47 minutes of Critical Care Time with this patient. This does not include time spent on separately reported billable procedures. Discharge Plan Discharge Clinical Impression: Kidney calculi Patient Disposition: Home, Self-Care Instructions: Kidney Stones (ED) Additional Instructions: Your work up today showed evidence of left sided kidney stones - I am suspicious your pain is from the recent passing of a stone. IF you are prescribed home medications and/or you are taking over the counter medications at home - it is very important you continue to do so as prescribed / directed unless told otherwise. Follow up with your primary care provider. Return to the emergency department immediately if your symptoms worsen or if you develop any numbness, tingling, dizziness, shortness of breath, difficulty breathing, chest pain, blurry vision, loss of vision, nausea, vomiting, abdominal pain, fever, chills, back pain, or any other complaints. Please see the information below about our Patient Portal. If you are not yet enrolled in the [facility] Patient Portal, you will receive an enrollment email invitation following your visit to any [facility] setting. You may also self-enroll in the Patient Portal by visiting our website: [email or web address] The following information is required to access the Patient Portal: - Your [facility] Medical Record Number - Your personal home email address (must match what is in your electronic medical record, Registration staff can assist with this) - Name - Date of Capabilities of the Patient Portal: - Message some providers - View upcoming appointments - Access your health summary, medical history, and visit history - View current conditions and allergies - View procedure and lab results - View your medications, including guidelines, side effects, and precautions - Complete pre-appointment questionnaires requested by your provider - Ready summary reports of your office visits and procedures To access the Patient Portal Mobile [employer], follow these directions: - Search [place] in the [employer] Store or [employer] Store - Download the Jeanne - Search for [facility] - Enter your login/password Prescriptions: New tamsulosin 0.4 mg capsule 0.4 mg PO DAILY Qty: 7 0RF naproxen 500 mg tablet 500 mg PO BID 7 Days Qty: 14 0RF Referrals: [facility] Urology Services [Provider Group, Urology] Referral Note: The urology group at [facility] should be contacting you within 2 business days. During this phone call, they will inform you of when your follow up appointment will be scheduled. If you have not received a call after 2 business days, please call the office number provided. Adelia Martel MD [Primary Care Provider, Internal Medicine] Stand Alone Forms: Work/School Release Interventions: ED Discharge Assessment Last Done: 12/26/24 10:09 Discharge Date/Time: 12/26/24 10:21 Print Language: Indonesian
[2024-12-26 08:53] LABS: Magnesium 1.7 mg/dL (1.6-2.6)
[2024-12-26] MEDS: iohexoL 350 MG/ML 100 ML INFUS..BTL IV (09:29)
[2024-12-26 09:31] VITALS: BP 125/66; PULSE 63; RESP 16; TEMP 37.2; O2SAT 98
[2024-12-26 10:09] VITALS: BP 125/66; PULSE 63; RESP 16; TEMP 37.2; O2SAT 98
== END 2024-12-26 10:21 | disposition home or self-care (01) ==
PROVIDERS: Physician Assistant Medical; Emergency Provider Emergency Medicine; PCP Internal Medicine
DX: N20.0 Calculus of kidney (principal); R10.12 Left upper quadrant pain
CPT/HCPCS: 36415; 74177; 80053; 81001; 83690; 83735; 84484; 84702; 85025; 93005; 96374; 96375; 99284; 99285; J2270; J2405; Q9967

== ENCOUNTER → 2024-12-26 03:10 | Outpatient (BNV) | payer OTHER, SELFPAY | PROVIDERS: Emergency Provider Emergency Medicine; PCP Internal Medicine; Visit Provider Internal Medicine | DX: R10.9 Unspecified abdominal pain (principal) | CPT/HCPCS: 93010 ==

== ENCOUNTER → 2024-12-26 08:20 | Outpatient (BNV) | payer OTHER, SELFPAY | PROVIDERS: Emergency Provider Emergency Medicine; PCP Internal Medicine; Visit Provider Radiology Diagnostic Radiology | DX: N20.0 Calculus of kidney (principal) | CPT/HCPCS: 74177 ==

== ENCOUNTER 2025-02-21 07:49 | Outpatient (AMB) | payer OTHER, SELFPAY ==
--- OUTSIDE RECORDS SUMMARY | 2025-02-21 07:52 | XMS_ITS | Clinical Summary ---
Author Organization [facility] Address [address] [place] [address] Phone Care Team Providers Care Recreational Counselor Name Role Phone Adelia Martel MD Primary Care Provider [phone] Allergies No known active allergies Medications albuterol [...] 10:00 AM EDT Consult Orthopedic Surgery - [place] [address] [facility] [address] [place] [id number] Yayo Steiner, DPM Hammer toe of left foot (Primary Dx); Plantar wart of left foot; Acquired hammer toe of right foot; Corns and callosities from Last 3 Months Surgical History Surgery [...] do you feel lonely or isolated from th ose around you? Never 08/28/2024 Food Risk [...] care for your loved ones. For example, housekeeper child care or elderly care for an older adult? [...] Date Recorded What is your living situation? Unrecognized valu e 08/28/2024 Comments Unknown Sex and Gender Information [...] Description 11/21/2025 8:30 AM EDT Office Visit [facility] Hematology Oncology [address] [place] [address] Benita Valencia PA [address] [place] [address] Health Maintenance Due Date Last Done Comments Colorectal Cancer Screening: Colonoscopy 1977 Hepatitis B Vaccines (1 of 3 - 19+ 3-dose series) 1996 Pneumococcal Vaccine: Pediatrics (0 to 5 Years) and At-Risk Patients (6 to 49 Years) (1 of 2 - PCV) 1996 Cholesterol Screening (Lipid Panel) 04/05/2022 Cervical Cancer Screening: Pap Smear 07/06/2024 07/07/2023, 08/17/2022, 01/25/2018 COVID-19 Vaccine ( season) 2024 02/17/2023, 05/17/2021, 11/12/2020, Additional history exists Influenza Vaccine (#1) 2024 , 04/05/2022, 02/18/2021, Additional history exists Social Influencers of Health Screening 08/28/2025 08/28/2024 Breast Cancer Screening 05/11/2026 05/11/19, 05/03/2023, 11/16/2022, Additional history exists DTaP,Tdap,and Td Vaccines (4 - Td or Tdap) 06/28/2032 06/28/2022, 07/02/2009, 05/15/2002 RSV Immunization Adult Patients (1 - 1-dose 75+ series) 2052 Depression Screening Completed 08/28/2024 HIV Screening Completed [...] Leukopenia, unspecified type Positive ABRIL (antinuclear antibody) HEPATITIS PANEL, ACUTE WITH REFLEX TO CONFIRMATION Routine 11/20/2024 9:42 AM EDT Leukopenia, unspecified type HIV 1, 2 ANTIBODY, P24 ANTIGEN WITH REFLEX TO DIFFERENTIATION Routine 11/20/2024 9:42 AM EDT Leukopenia, unspecified type MG MAMMO DIGITAL SCREENING W ABHISHEK BILAT Routine 05/11/2024 7:45 AM EST Encounter for screening mammogram for breast cancer PAP SMEAR Routine 07/07/2023 from Last 3 Months or Most Recently Relevant to Health Maintenance Results * Extractable Nuclear Antibodies Profile (11/23/2024 8:23 AM EDT) SM Ab Negative Negative LAB CHEMISTRY METHOD 11/25/2024 10:[address] [facility] SM Antibody Quant 4 <20 units LAB CHEMISTRY METHOD 11/25/2024 10:[address] [facility] [employer] Ab Negative Negative LAB CHEMISTRY METHOD 11/25/2024 10:[address] [facility] [employer] Antibody Quant 3 <20 units LAB CHEMISTRY METHOD 11/25/2024 10:[address] [facility] Blood Venous blood specimen / Unknown Venipuncture / Unknown 11/23/2024 8:23 AM EDT 11/23/2024 12:04 PM EDT us Benita CASTRO LAB BLOOD ORDERABLES Final Re sult [facility] [address] [place] [address], [place] [phone] * DNA antibody, double-stranded (11/23/2024 8:23 AM EDT) Anti-DNA Double Stranded Antibody Negative Negative LAB CHEMISTRY METHOD 11/25/2024 10:[address] [facility] ds DNA Ab 43 <=200 I Unit/mL LAB CHEMISTRY METHOD 11/25/2024 10:[address] [facility] Blood Venous blood specimen / Unknown Venipuncture / Unknown 11/23/2024 8:23 AM EDT 11/23/2024 12:04 PM EDT Benita CASTRO LAB BLOOD ORDERABLES Final Re sult Performing Organization Address [facility]/ZIP Co de Phone Number [facility] [address] [place] [address], * HIV 1,2 antibody, p24 antigen with reflex to differentiation (11/20/2024 9:42 AM EDT) Pathologist [facility] HIV Combo AB/AG Negative Negative LAB CHEMISTRY METHOD 11/20/2024 3:[address] [facility] Blood Venous blood specimen / Unknown Venipuncture / Unknown 11/20/2024 9:42 AM EDT 11/20/2024 12:[address] [facility] - 11/20/2024 3:55 PM EDT [...] ORDERABLES Final Re sult Performing Organization Address City/[facility]/ZIP Co de Phone Number [facility] [address] [place] [address], [place] [phone] * Hepatitis panel, acute with reflex to confirmation (11/20/2024 9:42 AM EDT) Hepatitis B Surface Ag Negative Negative LAB CHEMISTRY METHOD 11/20/2024 5:[address] [facility] Hepatitis A Antibody IgM Negative Negative LAB CHEMISTRY METHOD 11/20/2024 5:[address] [facility] Hep B Core IgM Negative Negative LAB CHEMISTRY METHOD 11/20/2024 5:[address] [facility] Hepatitis C Antibody Negative Negative LAB CHEMISTRY METHOD 11/20/2024 5:[address] [facility] Blood Venous blood specimen / Unknown Venipuncture / Unknown 11/20/2024 9:42 AM EDT 11/20/2024 12:15 PM EDT Benita CASTRO LAB BLOOD ORDERABLES Final Re sult [facility] [address] [place] [address], [place] [phone] * MG Mammo Digital Screening w Abhishek bilat (05/11/2024 7:45 AM EST) Anatomical Region Laterality Modality Breast Bilateral Mammography 05/11/2024 3:37 PM EST Impressions 05/11/2024 3:37 PM EST No mammographic evidence of malignancy. BREAST DENSITY: B - There are scattered areas of fibroglandular density. BI-RADS CATEGORY: 1 - NEGATIVE RECOMMENDATION: Screening bilateral mammogram is recommended in 1 year. MAMMO LOCATION: [facility], [address] [place] [address], [phone], . -------- FINAL REPORT -------- Dictated By: Carmenza Stephens Dictated Date: 05/11/2024 15:37 ET Assigned Physician: Carmenza Stephens Reviewed and Electronically Signed By: Carmenza Stephens Signed Date: 05/11/2024 15:37 ET Workstation ID: [id number] Transcribed By: Self Edit Transcribed Date: 05/11/2024 [...] is recommended in 1 year. MAMMO LOCATION: [facility], [address] [place] [address], [phone], . -------- FINAL REPORT -------- Dictated By: Carmenza Stephens Dictated Date: 05/11/2024 15:37 ET Assigned Physician: Carmenza Stephens Reviewed and Electronically Signed By: Carmenza Stephens Signed Date: 05/11/2024 15:37 ET Workstation ID: [id number] Transcribed By: Self Edit Transcribed Date: 05/11/2024 15:37 ET us Adelia Martel MD IMG BI PROCEDURES Final Result * Pap smear (07/07/2023) 07/07/2023 Narrative HISTORICAL TESTING LAB RESULTING AGENCY - 07/20/2023 7:05 AM EDT [id number] THINPREP PAP, IMAGED: NEGATIVE FOR SQUAMOUS INTRAEPITHELIAL LESION AND MALIGNANCY . FABIAN ESTRADA(ASCP) (CASE ELECTRONICALLY SIGNED 07 19 2023) RESULT OF APTIMA HIGH RISK HPV ASSAY: HIGH RISK HPV: NEGATIVE (SEROTYPES 16,18,31,33,35,39,45,51,52,56,58,59,66,68) COMPLETED ON 2023-07-12 ADEQUACY: SATISFACTORY ENDOCERVICAL/TRANSFORMATION ZONE COMPONENT PRESENT. SOURCE: THINPREP PAP HPV ANY DX: REFLEX 16 AND 18, CERVICAL, IMAGED CLINICAL INFORMATION: HPV ANY DIAGNOSIS. HORMONES, PAP HX NEGATIVE LSIL, HPV +, [Z01.419] Bruno ROSS LAB CYTOLOGY ORDERABLES Final Result HISTORICAL TESTING LAB RESULTING AGENCY from Last 3 Months or Most Recently Relevant to Health Maintenance Insurance [facility] Care Teams Recreational Counselor Relationship Specialty Start Date End Date Adelia Martel MD [address] [place] [id number] PCP - General 02/19/00
--- OUTSIDE RECORDS SUMMARY | 2025-02-21 07:52 | XMS_ITS | Clinical Summary ---
Author Organization [facility] Address [address] [place] [address] Care Team Providers Care Cps Team Lead Name Role Phone Adelia Martel MD Primary Care Provider [phone] Allergies No known active allergies Medications Medication [...] Group Subscriber ID Effective Dates Phone Address [facility] [id number] 2022-Kartik liu [address] [facility] [address] [place] [address] O Care Teams Cps Team Lead Relationship Specialty Start Date End Date Adelia Martel MD PCP - General Internal Medicine 07/20/22
--- NOTE | 2025-02-21 08:03 | MHC.OFFVIS ---
Intake Visit Reasons: kidney stones Intake Note: New patient presents today for initial visit for kidney stones Urology Medication:None Blood Thinner:None Antibiotic Allergies:None Allergies tamsulosin Allergy (Verified 02/21/25 13:06) Rash Medication List - Last Reconciled 02/21/25 by Karri Reyes MD Unobtainable HPI Comments Details: 02/20/25-- History of Present Illness The patient is a 49-year-old female presenting for evaluation of kidney stones. She experienced severe pain on December 26, which led her to visit the emergency room. The pain was described as excruciating, causing her to feel faint and nauseous. She was administered morphine for pain relief and underwent a CT scan, which confirmed the presence of a left kidney stone. The CT scan revealed punctate stones in the left kidney. She was prescribed tamsulosin to facilitate stone passage, but developed a rash under her armpits, suggesting an allergic reaction. The patient has been advised on dietary modifications to prevent future stone formation, including increased fluid intake and the addition of lemon juice to her diet. She was also instructed to monitor her intake of high oxalate foods and sodium, and to maintain a balanced diet with normal dietary calcium. Diet pamphet administered. A 24-hour urine test has been ordered to assess her risk for future stone formation. Results - CT scan: 12/26/24--Confirmed presence of kidney stones, described as punctate in the left kidney. - Urinalysis: Negative for infection or blood. Plan 1. Nephrolithiasis - Continue dietary modifications to prevent stone formation, including increased fluid intake and lemon juice. - Monitor intake of high oxalate foods and sodium. - Conduct a 24-hour urine test to assess risk for future stone formation. Review of Systems Const All systems reviewed & are unremarkable except as noted in HPI and below Reports no additional complaints Eyes Reports no additional complaints ENT Reports no additional complaints Card Reports no additional complaints Resp Reports no additional complaints GI Reports no additional complaints Reports as per HPI Musc Reports no additional complaints Skin/Breast Reports system reviewed and no additional complaints, except as documented Neuro Reports no additional complaints Psych Reports no additional complaints Endo Reports no additional complaints Papo/Lymph Reports no additional complaints Aller/Immun Reports no additional complaints Physical Exam Const General: cooperative, healthy appearing and no acute distress Orientation/consciousness: patient oriented x3 HEENT Head: Yes normal to inspection, Yes normocephalic and Yes atraumatic Eyes Conjunctivae: conjunctivae normal Neck Neck: Yes normal visual inspection and Yes trachea midline Chest Chest palpation & inspection: normal inspection of the chest Resp Effort & Inspection: normal respiratory effort GI Inspection: Yes normal to inspection Palpation (GI): Soft to palpation Neuro General: patient oriented x3 Psych Appearance: grossly normal Results Reviewed Results Reviewed: Date of Service: 12/26/24 EXAMINATION: CT ABDOMEN PELVIS WITH IV CONTRAST HISTORY: LUQ pain COMPARISON: There are no prior studies for available comparison. TECHNIQUE: CT scan of the abdomen and pelvis was performed following administration of 85 mL Omnipaque 350 using standard departmental protocol. Coronal and sagittal reformatted images were generated and reviewed. Oral contrast material was not administered at the request of the referring physician. This CT exam was performed with one or more of the following dose reduction techniques: automated exposure control, adjustment of the mA and/or kV according to patient size, use of iterative reconstruction technique. DLP: 604 mGy-cm FINDINGS: LOWER CHEST: The visualized lung bases are clear. There is no pleural effusion. CARDIOVASCULATURE: The heart is normal in size. There is no pericardial effusion. LIVER: The liver is normal in size and contour. No liver mass is identified. The hepatic and portal veins are patent. GALLBLADDER / BILE DUCTS: The gallbladder is unremarkable. There is no intra or extrahepatic biliary ductal dilatation. SPLEEN: The spleen is normal in size. No focal splenic lesion is identified. PANCREAS: The pancreas is unremarkable in appearance. ADRENAL GLANDS: Within normal limits. KIDNEYS/RETROPERITONEUM: There is a punctate nonobstructing calculus in an interpolar calyx of the left kidney. There is no hydronephrosis. No renal masses are identified. LYMPH NODES: No abdominal or pelvic lymphadenopathy. VASCULATURE: The abdominal aorta is normal in caliber. MESENTERY/PERITONEUM: No free fluid. No masses. There is no free intraperitoneal gas. STOMACH: The stomach is collapsed, limiting evaluation. SMALL BOWEL: The small bowel is normal in caliber. COLON: The colon is unremarkable. APPENDIX: Normal. URINARY BLADDER/PELVIC ORGANS: The urinary bladder is unremarkable. The uterus and ovaries are unremarkable. BONES / SOFT TISSUES: No suspicious bony or soft tissue abnormalities. IMPRESSION: Punctate nonobstructing left renal calculus. Otherwise unremarkable contrast-enhanced CT of the abdomen and pelvis. Assessment & Plan Assessment & Plan (1) Kidney stone on left side: Code(s): N20.0 - Calculus of kidney Category: Medical Plan Plan 1. Nephrolithiasis - Continue dietary modifications to prevent stone formation, including increased fluid intake and lemon juice. - Monitor intake of high oxalate foods and sodium. - Conduct a 24-hour urine test to assess risk for future stone formation. Orders: Orders AMB Urinalysis Automated Today N20.0 - Calculus of kidney Patient Instructions: The patient had an opportunity to ask questions regarding treatment plan. The patient expressed understanding and agreement with the above treatment plan. The patient is aware they should contact our office by phone for worsening of their current condition or the appearance of new symptoms. Compliance is encouraged with any medications and followup testing that is ordered. It is a privilege to be allowed the opportunity to participate in the urologic care of your patient. If you have any questions or concerns regarding treatment for the above conditions please do not hesitate to contact me. The office telephone contact is [phone]. This note is constructed in part using voice recognition software. While every effort has been made to ensure accuracy operation shift supervisor errors may have been included. Yours sincerely, Karri Reyes MD Scribe Plan - Not visible on output: Patient was informed and verbally consented to the use of an ambient scribe for clinic note documentation during this visit. Coding Level of Care Code New Pt Level 4 (49954) Diagnoses Kidney stone on left side N20.0
== END 2025-02-21 08:29 | disposition home or self-care (01) ==
LOC: HO.HUSH 07:50
PROVIDERS: PCP Internal Medicine; Visit Provider Urology
DX: N20.0 Calculus of kidney (principal)
CPT/HCPCS: 99204

== ENCOUNTER → 2025-02-21 07:49 | Outpatient (BNVA) | payer OTHER, SELFPAY | PROVIDERS: PCP Internal Medicine; Visit Provider Urology | DX: N20.0 Calculus of kidney (principal) | CPT/HCPCS: 81003 ==